=== PATIENT | female | born 1990 | race Caucasian/White ===

== ENCOUNTER → 2017-01-16 | Outpatient (CLI) | payer BC ==
[~2017-01-16] MED LIST: ACNE MED
[2017-01-16 12:14] LABS: PREG INTERNAL NEGATIVE QC NEG CLEAR BACKGROUND; PREG INTERNAL POSITIVE QC POS CONTROL LINE
[2017-01-16 12:30] LABS: PROLACTIN 17.17 ng/mL
== END | disposition home or self-care (01) ==
LOC: C.LAB1850 10:16
PROVIDERS: ATTEND Obstetrics & Gynecology
DX: N91.2 Amenorrhea, unspecified (principal)

== ENCOUNTER → 2017-01-16 | Outpatient (CLI) | payer BC | END | disposition home or self-care (01) | LOC: C.PAPS 13:39 | PROVIDERS: ATTEND Obstetrics & Gynecology | DX: Z01.419 Encounter for gynecological examination (general) (routine) without abnormal findings (principal) ==

== ENCOUNTER → 2017-04-13 | Outpatient (CLI) | payer BC ==
[2017-04-13 10:24] LABS: CALCULATED INSULIN SENSITIVITY 0.349; GLUCOSE LOG 1.9542; INSULIN FASTING 8.2 mU/L (3-25); INSULIN LOG 0.9138
== END | disposition home or self-care (01) ==
LOC: C.LAB1850 07:04
PROVIDERS: ATTEND Obstetrics & Gynecology
DX: N91.2 Amenorrhea, unspecified (principal)

== ENCOUNTER → 2017-12-03 | Outpatient (CLI) | payer OTHER | END | disposition home or self-care (01) | LOC: C.LAB1850 09:50 | PROVIDERS: ATTEND Obstetrics & Gynecology | DX: O09.02 Supervision of pregnancy with history of infertility, second trimester (principal) ==